=== PATIENT | male | born 1985 | race Caucasian/White ===

== ENCOUNTER 2017-09-12 04:48 | Observation (INO) | payer BC ==
[2017-09-12] MEDS ORDERED: SODIUM CHLORIDE 0.9% 1,000 ML IV STA (04:54)
[2017-09-12 05:09] LABS: Glucose,Whole Blood 134 mg/dL (75-99)
[2017-09-12 05:32] LABS: Basophils % (A) 0 %; Eosinophils # (A) 0.1 k/uL (0-0.7); Eosinophils % (A) 2 %; HCT 44.5 % (39.0-53.0); HGB 13.9 gm/dL (13.0-17.5); Lymphocytes # (A) 3.4 k/uL (1.0-4.8); Lymphocytes % (A) 40 %; MCH 24.3 pg (25.0-35.0); MCHC 31.3 g/dL (31.0-37.0); MCV 77.8 fL (80.0-100.0); Mean Platelet Volume 8.6; Monocytes # (A) 0.2 k/uL (0-1.0); Monocytes % (A) 3 %; Neutrophils # (A) 4.4 k/uL (1.3-7.7); Neutrophils % (A) 53 %; Platelet Count 153 k/uL (150-450); RBC 5.72 m/uL (4.30-5.90); RDW 14.7 % (11.5-15.5); WBC 8.3 k/uL (3.8-10.6)
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
[2017-09-12 05:50] LABS: ALT 45 U/L (21-72); AST 39 U/L (17-59); Albumin 4.7 g/dL (3.5-5.0); Alkaline Phosphatase 81 U/L (38-126); Anion Gap 18 mmol/L; Blood Urea Nitrogen 14 mg/dL (9-20); Carbon Dioxide 15 mmol/L (22-30); Chloride 106 mmol/L (98-107); Glucose 145 mg/dL (74-99); Potassium 4.6 mmol/L (3.5-5.1); Sodium 139 mmol/L (137-145); Total Bilirubin 0.4 mg/dL (0.2-1.3); Total Protein 7.6 g/dL (6.3-8.2)
--- NOTE | 2017-09-12 05:55 | CT ---
EXAM: CT Head Without Intravenous Contrast CLINICAL HISTORY: ITS.REASON CT Reason: seizure activity TECHNIQUE: Axial computed tomography images of the head/brain without intravenous contrast. CTDI is 57.4 mGy and DLP is 1184.90 mGy-cm. This CT exam was performed using one or more of the following dose reduction techniques: automated exposure control, adjustment of the mA and/or kV according to patient size, and/or use of iterative reconstruction technique. COMPARISON: 11/22/15 FINDINGS: Interval postoperative changes with bilateral craniotomies. Multifocal areas of encephalomalacia with ex vacuo dilatation of ventricles. Generalized atrophy and ventricular caliber, increased compared to previous. Areas of increased density underlying craniotomies suspected to represent surgical change/thickened dura rather than hemorrhage. No definite ICH. No mass effect. MRI more sensitive and could be obtained, as indicated. IMPRESSION: No acute intracranial findings. Interval surgical changes and other findings, as above.
[2017-09-12] MEDS ORDERED: NALOXONE 0.4 MG/ML 1 ML VIAL IV PRN (06:02)
[2017-09-12 07:41] VITALS: BMI 29.5
[2017-09-12] MEDS ORDERED: LORazepam 2 MG/ML INJ IV PRN (07:47)
[2017-09-12] MEDS ORDERED: ONDANSETRON 4 MG/2 ML VIAL IVP PRN (07:48)
[2017-09-12] MEDS ORDERED: ACETAMINOPHEN TAB 325 MG TAB PO PRN (07:48)
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
[2017-09-12] MEDS: CYCLOBENZAPRINE 5 MG TAB PO PRN ×2 (11:23→21:28)
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
[2017-09-12] MEDS: HEPARIN SODIUM,PORCINE 5,000 UNIT/ML 1 ML VIAL SQ SCH (20:48)
[2017-09-12] MEDS: OXcarbazepine 300 MG TAB PO SCH (20:48)
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
[2017-09-13] MEDS: HEPARIN SODIUM,PORCINE 5,000 UNIT/ML 1 ML VIAL SQ SCH ×2 (09:11→21:50)
[2017-09-13] MEDS: OXcarbazepine 300 MG TAB PO SCH ×2 (09:11→21:50)
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
[2017-09-13] MEDS: CYCLOBENZAPRINE 5 MG TAB PO PRN (14:51)
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
[2017-09-14 00:27] VITALS: RESP 20
[2017-09-14 07:46] VITALS: BP 125/64; PULSE 62; TEMP 97.3
[2017-09-14] MEDS: HEPARIN SODIUM,PORCINE 5,000 UNIT/ML 1 ML VIAL SQ SCH (07:53)
[2017-09-14] MEDS: OXcarbazepine 300 MG TAB PO SCH (07:53)
[2017-09-14] MEDS: CYCLOBENZAPRINE 5 MG TAB PO PRN (08:44)
[2017-09-14] MEDS ORDERED: CHOLECALCIFEROL 1,000 UNIT TAB PO SCH (09:00)
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
--- NOTE | 2017-09-15 14:58 | EEG ---
ELECTROENCEPHALOGRAM REPORT DATE OF SERVICE: 09/13/2017. REASON FOR TESTING: Seizure. CURRENT ANTI-EPILEPTIC MEDICATIONS: Trileptal. DESCRIPTION OF THE PROCEDURE: This EEG was performed using a 21 channel digital electroencephalograph, following international 10-20 system. DESCRIPTION OF THE RECORDING: From the beginning of the tracing, and with patient's eyes closed, the background rhythm was mostly consisting of 8-9 Hz alpha frequency in the posterior occipital leads. No obvious asymmetry is seen. Photic stimulation was performed with a good driving response seen. No pathological waves were elicited. Hyperventilation was performed with a minimal buildup of amplitude seen. Again, no pathological waves were elicited. Occasional movement artifacts are seen. The patient remains awake throughout the tracing. No epileptiform discharges were seen. His EKG lead showed a regular rate and rhythm, rare dysregulation is noticed later in the tracing. INTERPRETATION: This awake EEG is abnormal due to earlier dysregulation seen. This could be consistent with a reduced seizure threshold. No obvious epileptiform discharges were seen. Clinical correlation is recommended. JAMAR / EUGENE: [id number] /
[2017-09-16] MEDS ORDERED: OXcarbazepine 300 MG TAB PO SCH (09:00)
== END 2017-09-14 14:00 | disposition home or self-care (01) ==
LOC: EC 04:48 → 4MS4W 06:08
PROVIDERS: ADMIT Internal Medicine; ATTEND Internal Medicine
DX: G40.409 Other generalized epilepsy and epileptic syndromes, not intractable, without status epilepticus (principal); E87.2 Acidosis; R73.9 Hyperglycemia, unspecified; Z86.14 Personal history of Methicillin resistant Staphylococcus aureus infection; Z87.820 Personal history of traumatic brain injury; Z79.899 Other long term (current) drug therapy; Z82.49 Family history of ischemic heart disease and other diseases of the circulatory system; M54.9 Dorsalgia, unspecified; D50.9 Iron deficiency anemia, unspecified
CPT/HCPCS: 99285 ×2; 96360 ×2; 96372 ×3; 36415; 95816; 93005; 80053; 80183; 85025; 70450; 70551; G0378 ×3; J1644 ×3

== ENCOUNTER → 2017-10-04 | Outpatient (CLI) | payer BC ==
[2017-10-04 08:44] LABS: HCT 44.5 % (39.0-53.0); HGB 14.1 gm/dL (13.0-17.5); Hypochromasia Slight; MCH 25.1 pg (25.0-35.0); MCHC 31.7 g/dL (31.0-37.0); Mean Platelet Volume 7.7; Platelet Count 180 k/uL (150-450); RBC 5.63 m/uL (4.30-5.90); RDW 14.9 % (11.5-15.5); WBC 5.8 k/uL (3.8-10.6)
[2017-10-04 08:56] LABS: ALT 44 U/L (21-72); AST 32 U/L (17-59); Albumin 4.4 g/dL (3.5-5.0); Alkaline Phosphatase 120 U/L (38-126); Anion Gap 9 mmol/L; Blood Urea Nitrogen 13 mg/dL (9-20); Calcium 9.2 mg/dL (8.4-10.2); Carbon Dioxide 28 mmol/L (22-30); Chloride 104 mmol/L (98-107); Glucose 88 mg/dL (74-99); Potassium 4.7 mmol/L (3.5-5.1); Sodium 141 mmol/L (137-145); Total Bilirubin 0.5 mg/dL (0.2-1.3); Total Protein 7.3 g/dL (6.3-8.2)
== END | disposition home or self-care (01) ==
LOC: LABWHC1 08:06
PROVIDERS: ATTEND Psychiatry & Neurology Neurology
DX: G40.909 Epilepsy, unspecified, not intractable, without status epilepticus (principal)
CPT/HCPCS: 36415; 80053; 80183; 85027